=== PATIENT | female | born 1945 | race Caucasian/White ===

== ENCOUNTER 2017-04-27 09:40 | Day surgery (SDC) | payer MEDICARE ==
[~2017-04-27] VITALS: Ht 157.5 cm; Wt 71.2 kg
[~2017-04-27 09:40] MED LIST: ASPI-973 PO; BACL10TA PO; CALC-243 PO; CHOL200047 PO; L.AC1CAP5 PO; LEVO50TA6 PO; LIP40 PO; Lactated Ringer's 1,000 ML IV ONE; MAGN400T4 PO; METO25TA6 PO; MULT-1018 PO; OMEG-38 PO; OXYB5TAB10 PO; SULF1TAB34 PO
[2017-04-27] MEDS ORDERED: Propofol 10,000 mCg/mL 20 mL Inj ONE (09:41)
[2017-04-27 10:37] VITALS: BP 165/84; PULSE 87; RESP 15; O2SAT 99
--- NOTE | 2017-04-27 10:38 | PCM.HPANE ---
Patient Data Date of Service: Apr 27, 2017 Surgeon Admitting Provider: Attending Provider:Cali Nunez MD Primary Care Physician:Naga Brower MD Other Provider:Bryant Ferguson Anesthesia Reason for Visit Constipation Ht/WT & BMI Height (Feet): 5 Height (Inches): 2 Weight (Kilograms): 71.21 Body Mass Index 28.00 Allergies Coded Allergies: No Known Drug Allergies (Verified Allergy, Unknown, 04/26/17) Past Anesthesia History Anesthesia History: Denies:: Anesthesia Reactions, Fam Anesthesia Reaction, Fam Malignant Hypertherm, Malignant Hyperthermia Diabetes History Hx Diabetes?: No MRSA MRSA: No Medications Blood Thinner: Aspirin Last Dose Blood Thinner: Apr 26, 2017 Home Meds Incl Beta Manny: Yes Date Beta Manny Taken: Apr 26, 2017 Time Beta Manny Taken: 2129 Reported Medications Cholecalciferol (Vitamin D3) (Vitamin D3)2,000 Unit Capsule2,000 Unit PO 04/26/17 Sulfamethoxazole/Trimeth 400-80 mg (Bactrim 400-80 mg)1 Each Tablet1 Tablet PO BID Ref 0 04/26/17 L.acid/L.casei/B.bif/B.teresita/Fos (Probiotic Blend Capsule)1 Each Capsule1 Each PO 04/26/17 Oxybutynin Chloride 5 Mg Tablet5 Mg PO TID Ref 0 04/26/17 Multivitamin (Multi Vitamin Daily)1 Each Tablet1 Each PO DAILY 30 Days Ref 0 04/26/17 Metoprolol Tartrate 25 Mg [id number] Mg PO BID 30 Days Ref 0 04/26/17 Magnesium Oxide 400 Mg [id number] Mg PO 04/26/17 Levothyroxine 50 Mcg [id number] Mcg PO DAILY Ref 0 04/26/17 [place]-3/Dha/Epa/Fish Oil (Fish Oil 1,000 mg Softgel)1 Each Capsule1 Each PO 04/26/17 Calcium Carbonate/Vitamin D3 (Calcium 600 + Vit D Tablet)1 Each Tablet1 Each PO 04/26/17 Baclofen 10 Mg [id number] Mg PO DAILY Ref 0 04/26/17 Atorvastatin (Lipitor)40 Mg [id number] Mg PO DAILY Ref 0 04/26/17 Aspirin 81 Mg [id number] Mg PO DAILY Ref 0 04/26/17 History History of ENT Problems?: No HEENT History: Denies:: Abnormal Airway Hearing Problem Denture Type: None Teeth Condition: Within Normal Limits Hx of Heart Problems?: Yes Cardiovascular History: Positive for:: Hypertension Denies:: AICD Pacemaker Hx of Respiratory Problem?: No Respiratory History: Denies:: Asthma Hx Neurologic Problems?: Yes Neurological History: Positive for:: Multiple Sclerosis (primary progressive) Denies:: CVA Hx of GI Problems?: No Hx of Problems?: No HX of Peritoneal Dialysis: No Female Hx: Denies:: Currently Hx Musculoskeletal Problems?: No Hx of Psycho/Social Problems?: No Psycho Social History: Denies:: Anxiety Hx Depression Hx Surgeries?: No Hx Any Other Health Problems?: Yes Hx Diabetes: No Other Pertinent History: MS Hx Alcohol Use: Yes (OCCASIONLY)Hx Substance Use: No Stop/Bang Treated for Sleep Apnea?: No Do You Have a CPAP Machine?: No S-Snoring: Do You Snore Loudly: Yes T-Tired: feel tired, fatigued: Yes O-Obsered: Observed not breath: No P-Blood Pressure: treated: Yes B- Body Mass Index > 35 kg/m2: Yes A- Age over 50: Yes N- Neck Large Circumference: Yes G- Gender Male: No MARCUS Total Score: 6 MARCUS Risk Assessment: High Risk, =/>3 Yes MARCUS Category 4 OutPt Procedure: Yes Risk Assessment Category Category 1A: Patient has history of documented sleep apnea, and HAS NOT received any narcotic, sedative or anesthesia administration during this stay. Category 1B: Patient has history of documented sleep apnea, and HAS received any narcotic , sedative or anesthesia administration during this stay Category 2: Patient has SUSPECTED Obstructive Sleep Apnea, and HAS received any narcotic , sedative or anesthesia administration during this stay. Category 3: Patient has SUSPECTED Obstructive Sleep Apnea and HAS NOT received narcotic, sedative or anesthesia administration during this stay. Category 4: Outpatient in Procedural Areas with known sleep apnea or who screen positive for High Risk via the STOP/BANG questionnaire. Exam Exam General Appearance: Alert, Oriented X3, Cooperative HEENT/AIRWAY: MP 2, Neck Movement (OK), Mouth Opening (Wide) Lungs: Clear to Auscultation, Normal Air Movement Heart: Regular Rate/Rhythm, Normal S1, Normal S2 Plan Impression Patient chart reviewed, patient interviewed and anesthestic plan with risks, benefits, and alternatives discussed, and informed consent obtained. NPO per Anesth. Guidelines: Yes ASA Physical Status: ASA3 Severe Disease Anesthetic Plan: MAC Bene/Risks/Altern/Consents: Yes HP Complete Prior to Induction: Yes Cheko Saavedra MD Apr 27, 2017 10:38
[2017-04-27] MEDS ORDERED: Lactated Ringer's 1,000 ML IV SCH (10:39)
[2017-04-27] MEDS ORDERED: MetoCLOpramide 5 mg/mL 2 mL Inj IVPUSH PRN (10:40)
[2017-04-27] MEDS ORDERED: Ondansetron 2 mg/mL 2 mL Inj IVPUSH PRN (10:40)
[2017-04-27] MEDS ORDERED: Atropine 0.4 mg/mL Inj IVPUSH PRN (10:40)
[2017-04-27 11:20] VITALS: BP 125/59; PULSE 88; RESP 15; O2SAT 96
--- NOTE | 2017-04-27 11:25 | PCM.ANEP1 ---
Post Anesthesia PACU Phase 1 Assessment Date of Service: Apr 27, 2017 Vital Signs Vital Signs Date Time Temp Pulse Resp B/P Pulse Ox O2 Delivery O2 Flow Rate FiO2 04/27/17 11:20 88 15 125/59 96 Room Air 04/27/17 10:37 36.5 87 15 165/84 99 Room Air Anesthetic Administered: MAC Level of Alertness: Sleepy, easy to arouse BANKS's with Equal Strength: Yes Pain: No Nausea or Vomiting: No CV Function & Hydration Stable: Yes Airway Device: Oxygen Delivery: Room Air Lungs: Clear to Auscultation, Normal Air Movement PACU Phase 2 Assessment Complications: Yes Follow up Care: N/A Patient Instructions Provided: N/A Cheko Saavedra MD Apr 27, 2017 11:25
[2017-04-27 11:30] VITALS: BP 114/56; PULSE 79; O2SAT 97
[2017-04-27 11:48] VITALS: BP 137/66; PULSE 72; O2SAT 98
--- NOTE | 2017-04-27 13:50 | ENDO ---
[address] [address] ENDOSCOPY PROCEDURE PATIENT: SABINE GILLIS : 1945 MR#: [id number] ADMIT: 04/27/2017 JOB ID: [id number] DATE: 04/27/2017 PRIMARY PROVIDER: Naga Brower M.D. PROCEDURE: Colonoscopy. INDICATIONS: A 71-year-old female with a history of longstanding constipation. She had abnormal imaging in January. Last attempted colonoscopy was [address] Watson. She has a history of megacolon. EQUIPMENT: [employer] H [address] AL. SEDATION: Monitored anesthesia as provided by Dr. Cheko Saavedra. COMPLICATIONS: None identified. Bowel prep poor in many locations requiring copious amounts of irrigation and suction. PROCEDURAL INFORMATION: After the risks and benefits were explained, written and verbal informed consent was obtained. The patient was brought into the endoscopy suite and placed into the left lateral decubitus position. Sedation was achieved as above. A digital rectal examination accomplished. Mild internal hemorrhoids appreciated. Otherwise, no significant pathology. The scope was introduced into the rectum and advanced under direct visualization to somewhere probably in the transverse colon. Several times all of the endoscope was introduced. We utilized the stiffening feature and multiple applications of abdominal pressure in an effort to control looping. However, we were not able to advance the scope any further secondary to the tortuous redundant looping dilated bowel. The scope was, therefore, withdrawn to carefully examine the mucosa for any defects or lesions. Multiple direct views were made through the dentate line for exclusion of pathology. The colon was decompressed. The scope removed from the patient who tolerated the procedure well. FINDINGS: Dilated colon, redundant, tortuous looping. I, however, did not appreciate any significant mass effect in the sigmoid. No stricturing. No blockage apparent. We hubbed the endoscope on a number of occasions and could not overcome the redundant nature of the bowel to advance all the way to cecum. ENDOSCOPIC DIAGNOSES: 1. Redundant bowel. 2. Incomplete examination to cecum. 3. Mild hemorrhoids. RECOMMENDATIONS: 1. Continue aggressive bowel regimen including the Linzess. This has helped tremendously with more regular evacuations. 2. I would suggest a balloon assisted colonoscopy for completion of the colon cancer screening experience within the next 1-2 years down in the [place] area.
== END 2017-04-27 23:59 | disposition home or self-care (01) ==
LOC: END 09:40
PROVIDERS: ATTEND Internal Medicine Gastroenterology
DX: K63.89 Other specified diseases of intestine (principal); K64.8 Other hemorrhoids; K59.00 Constipation, unspecified; I10 Essential (primary) hypertension; G35 Multiple sclerosis; Z79.82 Long term (current) use of aspirin; Z79.899 Other long term (current) drug therapy
CPT/HCPCS: 45378; J7120